=== PATIENT | male | born 2000 | race Caucasian/White ===

== ENCOUNTER 2025-01-21 11:46 | Emergency (ER) | payer OTHER, SELFPAY ==
[2025-01-21 12:13] VITALS: BP 147/88
[2025-01-21 12:40] LABS: % Basophils 0.3 % (0-2); % Eosinophils 1.4 % (0-6); % Immature Granulocytes 0.2 % (0-0.5); % Lymphocytes 21.9 % (20.5-51.1); % Monocytes 7.6 % (1.7-9.3); % Neutrophils 68.6 % (42.2-75.2); Absolute Eosinophils 0.1 10^3/uL (0-0.7); Absolute Lymphocytes 1.4 10^3/uL (1.2-3.4); Absolute Monocytes 0.5 10^3/uL (0.1-0.6); Absolute Neutrophils 4.4 10^3/uL (1.4-6.5); Hematocrit 42.2 % (39.0-52.0); Hemoglobin 15.5 g/dL (13.0-18.0); Mean Corp Hgb Conc. 36.7 g/dL (33.0-37.0); Mean Corpuscular Hgb 32.2 pg (27.0-31.0); Mean Corpuscular Volume 87.6 fL (80.0-94.0); Mean Platelet Volume 9.4 fL (7.4-10.4); Nucleated Red Blood Cells % 0 % (-); Platelet Count 225 10^3/uL (130-400); Red Blood Cell Count 4.82 10^6/uL (4.70-6.10); Red Cell Dist. Width 11.1 % (11.5-14.5); White Blood Cell Count 6.3 10^3/uL (4.8-10.8)
[2025-01-21 12:52] LABS: ALT (SGPT) 25 U/L (0-50); AST (SGOT) 18 U/L (17-59); Albumin 4.5 g/dl (3.5-5.0); Alkaline Phosphatase 51 U/L (38-126); Blood Urea Nitrogen 11 mg/dl (9-20); Calcium 9.8 mg/dl (8.4-10.2); Carbon Dioxide 22 mmol/L (22-30); Chloride 108 mmol/L (98-107); Glucose 111 mg/dl (70-99); Potassium 3.7 mmol/L (3.5-5.1); Sodium 140 mmol/L (135-145); Total Bilirubin 0.4 mg/dl (0.2-1.3); Total Protein 7.1 g/dl (6.3-8.2); eGFR > 60.00
[2025-01-21 13:03] LABS: Troponin I < 0.012 ng/ml
--- NOTE | 2025-01-21 15:30 | ED.GENMED ---
History of Present Illness
General
Chief Complaint: Dizziness
Source: patient
Exam Limitations: none
Time Seen by Provider: 01/21/25 15:23
History of Present Illness
History of Present Illness:
24yoM with no significant past medical history presenting with his significant other for evaluation of dizziness. Patient has had intermittent episodes of dizziness over the past week. The episodes were lasting a few seconds at a time. He started
to have an episode of dizziness while at work today which lasted about 3 hours. The episode is described as feeling like the room is spinning but also like he has to black out. Symptoms seem to be worse with bright lights. He is now feeling much
better. He recently removed a tick from his ear which was not engorged. He is worried that his ears may be clogged. He denies any headache, visual changes, chest pain, shortness of breath, syncope.
Phy Exam
General Physical Exam
General Presentation: well appearing and no apparent distress
General age: appears stated age
General Skin: warm and dry
General Habitus: normal
General Mental: alert
ENT Exam
ENT Exam: TM's normal, pharynx normal and normocephalic
Eye Exam
Eye Exam: PERRL, EOMI and conjunctiva normal
Cardiovascular Exam
Cardiovascular Exam: regular rate/rhythm
Pulmonary Exam
Pulmonary Exam: lungs clear, no respiratory distress, no rales, no crackles and no rhonchi
Neurological Exam
Neurological Exam: alert and other (PERRL. EOMs intact without nystagmus. Normal finger to nose and heel to nance bilaterally.)
[place] Coma Scale
Eye Opening: Spontaneous
Verbal Response: Oriented
Motor Response: Obeys Commands
GCS Total Score: 15
Skin Exam
Skin Exam: normal color and warm/dry
Psychiatric Exam
Psychiatric Exam: normal mood/affect
Course
Orders/Labs/Results
Orders:
Orders
01/21/25 11:47
Electrocardiogram (*1) Urgent
Reason for Study: Vertigo / Dizzy
EKG- Treatment ONCE
01/21/25 12:22
Complete Blood Count/With Diff Urgent
Comprehensive Metabolic Panel Urgent
Troponin I Urgent
01/21/25 15:44
Pt Eval And Treat Urgent
Treatment: vestibular eval
Activity Level: Out of Bed- Ad Darshana
Abnormal Lab Results
01/21/25
12:22
MCH 32.2 H pg
(27.0-31.0)
RDW 11.1 L %
(11.5-14.5)
Chloride 108 H mmol/L
(98-107)
Glucose 111 H mg/dl
(70-99)
01/21/25 12:22
01/21/25 12:22
Vital Signs
Initial and Last Documented VS:
Initial Vital Signs
Temp Pulse Resp BP Pulse Ox
98.9 F 89 18 147/88 97
01/21/25 12:13 01/21/25 12:13 01/21/25 12:13 01/21/25 12:13 01/21/25 12:13
Last Documented Vital Signs
Temp Pulse Resp BP Pulse Ox
98.9 F 60 18 127/76 100
01/21/25 12:13 01/21/25 16:57 01/21/25 16:57 01/21/25 16:57 01/21/25 16:57
MDM/Problems Addressed
Differential Diagnosis Includes:
24yoM here with intermittent episodes of dizziness x 1 week. Had a bad episode earlier today. Described as room spinning and feeling like he has to pass out. Currently asymptomatic. VSS. He is well appearing in no distress. No nystagmus or ataxia
noted on exam. Differential diagnosis includes but is not limited to: orthostatic hypotension, dehydration, BPPV, vestibular neuronitis
Initial ED plan: Cardiac labs and EKG obtained in triage. EKG shows NSR without ischemic changes. Labs overall unremarkable and troponin WNL. Will consult PT for vestibular evaluation.
*EKG
Interpreted by ED Provider?: Yes
EKG Intrepretation Date: 01/21/25
Heart Rate: 91
Rate: normal
Rhythm: sinus
[place]: normal axis
Interval: normal interval
Ischemia: no ischemia
*Critical Care Note
Total Time (30-74mins, 75-104mins- exclusive of procedures): Not Applicable
Update Note
Update Note:
Patient evaluated by physical therapy and vestibular testing was negative. Patient remains asymptomatic on reassessment. Symptoms are nonspecific. No indication for hospitalization. Advised to follow-up with PCP and return to the ED with any new
or worsening symptoms. Patient discharged in stable condition.
ED Attending Note
-
Portions of this chart may have been created with voice recognition software.� Occasional wrong word or��sound alike� substitutions may have occurred due to the inherent limitations of voice recognition software.
Discharge Plan
Departure
Patient Disposition: Home (Routine Discharge)
Date of Disposition: 01/21/25
Time of Disposition: 16:48
Patient with high blood pressure during this ER visit?: Yes
Discharge Problem:
Dizziness
Instructions: Dizziness
Referrals:
[facility] [Provider Group]
UNKNOWN - PT DOES,NOT KNOW [Family Provider] -
Activity Restrictions/Additional Instructions:
Drink plenty of fluids and stay hydrated.
Please follow-up with a family doctor. Return to the ER with any new or worsening symptoms.
Interventions
Interventions:
*Risk Screen - Suicide Last Done: 01/21/25 12:13
*General Assessment Last Done: 01/21/25 12:13
*Neglect/Abuse Screening Last Done: 01/21/25 12:13
*ED COVID-19 Vaccine History Last Done: 01/21/25 12:13
*Nursing Disposition Last Done: 01/21/25 17:09
ED- Neurological Assessment Last Done: 01/21/25 16:57
Discharge Date and Time
Discharge Date/Time: 01/21/25 17:09
Print Language: BELIZEAN
[2025-01-21 16:42] VITALS: BP 140/96; PULSE 65
[2025-01-21 16:57] VITALS: BP 127/76
== END 2025-01-21 17:09 | disposition home or self-care (01) ==
LOC: EMR 11:46
PROVIDERS: Emergency Medicine; EMERGENCY PHYSICIAN Emergency Medicine
DX: R42 Dizziness and giddiness (principal)
CPT/HCPCS: 99283; 80053; 84484; 85025; 93005